=== PATIENT | female | born 1995 | race Caucasian/White ===

== ENCOUNTER 2020-03-15 06:04 | Emergency (ER) | payer BC ==
[2020-03-15] MEDS ORDERED: Sodium Chloride 0.9% 1,000 ML IV ONE (06:26)
[2020-03-15 06:40] LABS: BARBITURATE SCREEN,URINE NEGATIVE (NEGATIVE); BENZODIAZEPINES SCREEN,URINE NEGATIVE (NEGATIVE); EDDP,URINE SCREEN NEGATIVE (NEGATIVE); TCA SCREEN,URINE NEGATIVE (NEGATIVE); THC SCREEN,URINE 50 NG/ML NEGATIVE (NEGATIVE)
[2020-03-15 07:02] LABS: CHLORIDE,CL 105 mmol/L (98-107); SODIUM,NA 139 mmol/L (136-145)
[2020-03-15] MEDS ORDERED: levETIRAcetam 1,000 MG in Sodium Chloride 0.9% 100 ML IV ONE (07:16)
--- NOTE | 2020-03-15 07:27 | EDM.PDOC ---
ED HPI GENERAL MEDICAL PROBLEM - General Chief Complaint: General Stated Complaint: unresponsive Time Seen by Provider: 03/15/20 06:04 Source of Information: Reports: EMS, Family History Limitations: Reports: Altered Mental Status - History of Present Illness INITIAL COMMENTS - FREE TEXT/NARRATIVE: Pt brought to ER via EMS Was working at [employer] and had a syncopal episode Pt unresponsive in transport per EMS Upon arrival in ER, pt remains unresponsive. Per 's report who was at work with her, pt had been seen in [facility] recently for tachycardia and had holter monitor placed several days ago and removed but no report yet No fever No trauma No recent illness Did have Covid-19 in 02/02 No hx/o seizures No previous syncope Pt given Valium 5 mg IV per [facility] orders upon arrival in ER Onset: Today, Sudden Location: Reports: Generalized Context: Reports: Other (Syncope) - Related Data Allergies Allergy/AdvReac Type Severity Reaction Status Date / Time No Known Allergies Allergy Verified 08/06/19 12:33 Home Meds: Home Meds . 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 Neurological History: Reports: Concussion Psychiatric History: Reports: Emotional Problems Endocrine/Metabolic History: Reports: Obesity/BMI 30+ - Past Surgical History HEENT Surgical History: Reports: Oral Surgery GI Surgical History: Reports: Colonoscopy Female Surgical History: Reports: Section Social & Family History - Family History Family Medical History: Noncontributory - Caffeine Use Caffeine Use: Reports: None ED ROS GENERAL - Review of Systems Review Of Systems: See Below Reason Not Obtained: Obtained from Constitutional: Reports: No Symptoms HEENT: Reports: No Symptoms Respiratory: Reports: No Symptoms Cardiovascular: Reports: Other (Tachycardia) GI/Abdominal: Reports: No Symptoms : Reports: No Symptoms Musculoskeletal: Reports: No Symptoms Neurological: Reports: No Symptoms Psychiatric: Reports: No Symptoms ED EXAM, GENERAL - Physical Exam Exam: See Below Exam Limited By: Altered Mental Status General Appearance: Other (Unresponsive) Eye Exam: Bilateral Eye: PERRL Ears: Normal TMs Nose: Normal Inspection Throat/Mouth: Normal Oropharynx Head: Atraumatic Neck: Normal Inspection Respiratory/Chest: Lungs Clear, Normal Breath Sounds Cardiovascular: Tachycardia GI/Abdominal: Soft Back Exam: Normal Inspection Extremities: Normal Inspection Neurological: Unresponsive, Other (GCS-3) Skin Exam: Warm, Dry Course - Vital Signs Last Recorded V/S: Last Vital Signs Temp 98.1 F 03/15/20 07:14 Pulse 108 H 03/15/20 07:14 Resp 12 03/15/20 07:14 BP 139/71 03/15/20 07:14 Pulse Ox 100 03/15/20 07:14 - Orders/Labs/Meds Orders: Active Orders 24 hr Category Date Time Status EKG Documentation Completion [RC] ASDIRECTED Care 03/15/20 06:12 Active Head wo Cont [CT] Stat Exams 03/15/20 06:06 Taken Sodium Chloride 0.9% [Normal Saline] 1,000 ml Med 03/15/20 06:26 Active IV .BOLUS levETIRAcetam [Keppra] 1,000 mg Med 03/15/20 07:16 Active Sodium Chloride 0.9% [Normal Saline] 100 ml IV ONETIME EKG 12 Lead [EK] Stat Ther 03/15/20 06:11 Ordered Medication Orders Sodium Chloride (Normal Saline) 1,000 mls @ 1,000 mls/hr IV .BOLUS ONE Stop: 03/15/20 07:25 Levetiracetam 1,000 mg/ Sodium (Chloride) 110 mls @ 400 mls/hr IV ONETIME ONE Stop: 03/15/20 07:32 Labs: Laboratory Tests 03/15/20 03/15/20 03/15/20 Range/Units 06:08 06:08 06:25 WBC 8.6 (4.0-10.2) K/uL RBC 4.37 (3.77-5.09) M/uL Hgb 13.0 (11.7-15.5) g/dL Hct 39.6 (34.0-46.0) % MCV 90.6 (84.0-98.0) fL MCH 29.7 (28.2-33.3) pg MCHC 32.8 (31.7-36.0) g/dL RDW 14.7 H (11.2-14.1) % Plt Count 200 (150-350) K/uL Neut % (Auto) 69.9 (45.0-80.0) % Lymph % (Auto) 19.2 (10.0-50.0) % Clark % (Auto) 9.0 (2.0-14.0) % Eos % (Auto) 1.7 (0.0-5.0) % Baso % (Auto) 0.2 (0.0-2.0) % Neut # (Auto) 6.03 (1.40-7.00) K/uL Lymph # (Auto) 1.66 (0.50-3.50) K/uL Clark # (Auto) 0.78 (0.00-1.00) K/uL Eos # (Auto) 0.15 (0.00-0.50) K/uL Baso # (Auto) 0.02 (0.00-0.20) K/uL Sodium (136-145) mmol/L Potassium (3.5-5.1) mmol/L Chloride (98-107) mmol/L Carbon Dioxide (21.0-32.0) mmol/L BUN (7-18) mg/dL Creatinine (0.51-1.17) mg/dL Est Cr Clr Drug Dosing Estimated GFR (MDRD) mL/min Glucose (74-106) mg/dL Lactic Acid (0.4-2.0) mmol/L Calcium (8.5-10.1) mg/dL Total Bilirubin (0.2-1.0) mg/dL AST (15-37) U/L ALT (12-78) U/L Alkaline Phosphatase (46-116) IU/L Troponin I (0.000-0.056) ng/mL Total Protein (6.4-8.2) g/dL Albumin (3.4-5.0) g/dL Urine HCG, Qual Negative Urine Opiates Screen Negative (NEGATIVE) Ur Buprenorphine Scrn Negative (NEGATIVE) Ur Oxycodone Screen Negative (NEGATIVE) Ur EDDP (Meth Metab) Negative (NEGATIVE) Ur Barbiturates Screen Negative (NEGATIVE) Ur Tricyclics Screen Negative (NEGATIVE) Ur Amphetamine Screen Negative (NEGATIVE) U Methamphetamines Scrn Negative (NEGATIVE) Urine MDMA Screen Negative (NEGATIVE) U Benzodiazepines Scrn Negative (NEGATIVE) U Cocaine Metab Screen Negative (NEGATIVE) U Marijuana (THC) Screen Negative (NEGATIVE) Ethyl Alcohol (0.000-0.080) g/dL 03/15/20 03/15/20 Range/Units 06:25 06:25 WBC (4.0-10.2) K/uL RBC (3.77-5.09) M/uL Hgb (11.7-15.5) g/dL Hct (34.0-46.0) % MCV (84.0-98.0) fL MCH (28.2-33.3) pg MCHC (31.7-36.0) g/dL RDW (11.2-14.1) % Plt Count (150-350) K/uL Neut % (Auto) (45.0-80.0) % Lymph % (Auto) (10.0-50.0) % Clark % (Auto) (2.0-14.0) % Eos % (Auto) (0.0-5.0) % Baso % (Auto) (0.0-2.0) % Neut # (Auto) (1.40-7.00) K/uL Lymph # (Auto) (0.50-3.50) K/uL Clark # (Auto) (0.00-1.00) K/uL Eos # (Auto) (0.00-0.50) K/uL Baso # (Auto) (0.00-0.20) K/uL Sodium 139 (136-145) mmol/L Potassium 3.3 L (3.5-5.1) mmol/L Chloride 105 (98-107) mmol/L Carbon Dioxide 21.9 (21.0-32.0) mmol/L BUN 8 (7-18) mg/dL Creatinine 0.79 (0.51-1.17) mg/dL Est Cr Clr Drug Dosing TNP Estimated GFR (MDRD) > 60 mL/min Glucose 117 H (74-106) mg/dL Lactic Acid 1.1 (0.4-2.0) mmol/L Calcium 8.8 (8.5-10.1) mg/dL Total Bilirubin 0.5 (0.2-1.0) mg/dL AST 19 (15-37) U/L ALT 28 (12-78) U/L Alkaline Phosphatase 62 (46-116) IU/L Troponin I 0.000 (0.000-0.056) ng/mL Total Protein 7.1 (6.4-8.2) g/dL Albumin 4.0 (3.4-5.0) g/dL Urine HCG, Qual Urine Opiates Screen (NEGATIVE) Ur Buprenorphine Scrn (NEGATIVE) Ur Oxycodone Screen (NEGATIVE) Ur EDDP (Meth Metab) (NEGATIVE) Ur Barbiturates Screen (NEGATIVE) Ur Tricyclics Screen (NEGATIVE) Ur Amphetamine Screen (NEGATIVE) U Methamphetamines Scrn (NEGATIVE) Urine MDMA Screen (NEGATIVE) U Benzodiazepines Scrn (NEGATIVE) U Cocaine Metab Screen (NEGATIVE) U Marijuana (THC) Screen (NEGATIVE) Ethyl Alcohol 0.002 (0.000-0.080) g/dL Meds: Medications Generic Name Dose Route Start Last Admin Trade Name Freq PRN Reason Stop Dose Admin Sodium Chloride 1,000 mls @ 1,000 mls/hr 03/15/20 06:26 Normal Saline IV 03/15/20 07:25 .BOLUS ONE Levetiracetam 1,000 mg/ Sodium 110 mls @ 400 mls/hr 03/15/20 07:16 Chloride IV 03/15/20 07:32 ONETIME ONE - Re-Assessments/Exams Free Text/Narrative Re-Assessment/Exam: 03/15/20 07:28 See lab - WNL CT of head WNL per radiologist Pt remains unresponsive to noxious stimuli Is able to maintain own airway and breathing easily Oxygen sats on RA remain 100% Minimal urine output in [place] bag D/W Dr Hernandez [facility] ER Will accept in transfer Transfer via EMS Suggests Elanara 1 gm IV in ER Departure - Departure Time of Disposition: 07:40 Disposition: DC/Tfer to Acute Hospital 02 Clinical Impression: Altered mental status Qualifiers: Altered mental status type: coma Coma depth: [place] coma 3-8 Coma timing: unspecified coma timing Qualified Code(s): R40.2430 - [place] coma scale score 3-8, unspecified time - Discharge Information Referrals: PCP,None [Primary Care Provider] - Sepsis Event Note (ED) - Focused Exam Vital Signs: Vital Signs Temp Pulse Resp BP Pulse Ox 03/15/20 07:14 98.1 F 108 H 12 139/71 100 - My Orders Last 24 Hours: My Active Orders 03/15/20 06:06 Head wo Cont [CT] Stat 03/15/20 06:11 EKG 12 Lead [EK] Stat 03/15/20 06:12 EKG Documentation Completion [RC] ASDIRECTED 03/15/20 06:26 Sodium Chloride 0.9% [Normal Saline] 1,000 ml IV .BOLUS 03/15/20 07:16 levETIRAcetam [Keppra] 1,000 mg Sodium Chloride 0.9% [Normal Saline] 100 ml IV ONETIME - Assessment/Plan Last 24 Hours: My Active Orders 03/15/20 06:06 Head wo Cont [CT] Stat 03/15/20 06:11 EKG 12 Lead [EK] Stat 03/15/20 06:12 EKG Documentation Completion [RC] ASDIRECTED 03/15/20 06:26 Sodium Chloride 0.9% [Normal Saline] 1,000 ml IV .BOLUS 03/15/20 07:16 levETIRAcetam [Keppra] 1,000 mg Sodium Chloride 0.9% [Normal Saline] 100 ml IV ONETIME
[2020-03-15] MEDS ORDERED: Sodium Chloride 0.9% 1,000 ML IV SCH (08:00)
== END 2020-03-15 08:10 ==
LOC: LL.ED 06:04
DX: R41.82 Altered mental status, unspecified (principal); R40.2430 Glasgow coma scale score 3-8, unspecified time; E66.9 Obesity, unspecified; R00.0 Tachycardia, unspecified; Z68.35 Body mass index [BMI] 35.0-35.9, adult
CPT/HCPCS: 36415; 70450; 80053; 80305; 80307; 81025; 83605; 84484; 85025; 93005; 96365; 99285; J1953; J7030

== ENCOUNTER 2020-04-22 21:40 | Emergency (ER) | payer BC ==
--- NOTE | 2020-04-22 22:51 | EDM.PDOC ---
ED HPI GENERAL MEDICAL PROBLEM - General Chief Complaint: Cardiovascular Problem Stated Complaint: chest pressure Time Seen by Provider: 04/22/20 22:06 Source of Information: Reports: Patient History Limitations: Reports: No Limitations - History of Present Illness INITIAL COMMENTS - FREE TEXT/NARRATIVE: Patient comes to ER after feeling her heart was pounding after she woke up from a nap. Has been having issues with tachycardia episodes on/off for years, but problem has worsened since she had Covid two months ago. Has not required medication for tachycardia for some time. Is being evaluated by Cardiology. Has appointment later this week to be fit for Holter. Reports she has passed out before apparently from this issue. Has some chest pressure now but that has been ongoing since Covid. No chest pain. No SOB. Normal thyroid evaluation last year. No contributing factors found for the tachycardia so far otherwise. Is currently with 3rd child, first trimester. 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 Neurological History: Reports: Concussion Psychiatric History: Reports: Emotional Problems Endocrine/Metabolic History: Reports: Obesity/BMI 30+ - Past Surgical History HEENT Surgical History: Reports: Oral Surgery GI Surgical History: Reports: Colonoscopy Female Surgical History: Reports: Section Social & Family History - Family History Family Medical History: No Pertinent Family History - Tobacco Use Tobacco Use Status *Q: Never Tobacco User Second Hand Smoke Exposure: No - Caffeine Use Caffeine Use: Reports: None - Recreational Drug Use Recreational Drug Use: No ED ROS GENERAL - Review of Systems Review Of Systems: Comprehensive ROS is negative, except as noted in HPI. ED EXAM, GENERAL - Physical Exam Exam: See Below Exam Limited By: No Limitations General Appearance: Alert, No Apparent Distress, Anxious, Obese Eye Exam: Bilateral Eye: EOMI, PERRL Ears: Hearing Grossly Normal Nose: No: Nasal Deformity, Nasal Swelling, Nasal Drainage Throat/Mouth: Normal Lips, Normal Voice, No Airway Compromise Head: Atraumatic, Normocephalic Neck: Normal Inspection, Supple, Non-Tender, Full Range of Motion Respiratory/Chest: No Respiratory Distress, Lungs Clear, Normal Breath Sounds, No Accessory Muscle Use, Chest Non-Tender Cardiovascular: Regular Rate, Rhythm, No Murmur GI/Abdominal: Normal Bowel Sounds, Soft, Non-Tender, No Distention (Female) Exam: Deferred Rectal (Female) Exam: Deferred Extremities: Non-Tender, Normal Capillary Refill Neurological: Alert, Oriented, Normal Cognition, Normal Gait, No Motor/Sensory Deficits Psychiatric: Anxious Skin Exam: Warm, Dry, Intact, Normal Color #1 Interpretation EKG Date: 04/22/20 Time: 21:42 Rhythm: NSR Rate (Beats/Min): 84 [place]: Normal P-Wave: Present QRS: Normal ST-T: Normal QT: Normal Comparison: Change From Previous EKG (rate 117 previous EKG) Course - Vital Signs Last Recorded V/S: Last Vital Signs Temp 37.3 C 04/22/20 21:45 Pulse 81 04/22/20 22:00 Resp 20 04/22/20 22:00 BP 126/75 04/22/20 22:00 Pulse Ox 99 04/22/20 22:00 - Orders/Labs/Meds Orders: Active Orders 24 hr Category Date Time Status EKG Documentation Completion [RC] ASDIRECTED Care 04/22/20 21:40 Active CBC WITH AUTO DIFF [HEME] Stat Lab 04/22/20 21:57 Ordered COMPREHENSIVE METABOLIC PN,CMP [CHEM] Stat Lab 04/22/20 21:57 Ordered MAGNESIUM [CHEM] Stat Lab 04/22/20 21:57 Ordered TROPONIN I [CHEM] Stat Lab 04/22/20 21:57 Ordered EKG 12 Lead [EK] Stat Ther 04/22/20 21:57 Ordered - Re-Assessments/Exams Free Text/Narrative Re-Assessment/Exam: 04/22/20 22:34 Vital signs stable/normal heart rate noted during exam. EKG unremarkable. CBC/Chem/Mag/Troponin unremarkable. Patient does appear anxious, fine tremor at times noted when she used hands. Suspect component of anxiety present. Reassurance given. Recommend incorporating anti-inflammatory diet and meditation into treatment strategy while she works with Cardiology. Patient agreeable with suggestions. To follow up as scheduled this week. To follow up otherwise as needed PRN problems. Departure - Departure Time of Disposition: 22:37 Disposition: Home, Self-Care 01 Condition: Good Clinical Impression: Pounding heartbeat Referrals: Astrid Agarwal, GARMENT STEAMER [Primary Care Provider] - Additional Instructions: Follow up as planned with Cardiology later this week. Follow up otherwise as needed if you have further problems Sepsis Event Note (ED) - Evaluation Sepsis Screening Result: No Definite Risk - Focused Exam Vital Signs: Vital Signs Temp Pulse Resp BP Pulse Ox 04/22/20 22:00 81 20 126/75 99 04/22/20 21:45 37.3 C 80 21 H 138/78 99 - My Orders Last 24 Hours: My Active Orders 04/22/20 21:40 EKG Documentation Completion [RC] ASDIRECTED 04/22/20 21:57 CBC WITH AUTO DIFF [HEME] Stat COMPREHENSIVE METABOLIC PN,CMP [CHEM] Stat MAGNESIUM [CHEM] Stat TROPONIN I [CHEM] Stat EKG 12 Lead [EK] Stat - Assessment/Plan Last 24 Hours: My Active Orders 04/22/20 21:40 EKG Documentation Completion [RC] ASDIRECTED 04/22/20 21:57 CBC WITH AUTO DIFF [HEME] Stat COMPREHENSIVE METABOLIC PN,CMP [CHEM] Stat MAGNESIUM [CHEM] Stat TROPONIN I [CHEM] Stat EKG 12 Lead [EK] Stat
[2020-04-23 06:27] LABS: CHLORIDE,CL 105 mmol/L (98-107); SODIUM,NA 139 mmol/L (136-145)
== END 2020-04-22 23:00 | disposition home or self-care (01) ==
LOC: LL.ED 21:40
DX: R00.2 Palpitations (principal); E66.9 Obesity, unspecified
CPT/HCPCS: 36415; 80053; 83735; 84484; 85025; 93005; 99285-25

== ENCOUNTER 2022-03-05 20:03 | Emergency (ER) | payer BC ==
[2022-03-05] MEDS ORDERED: Iopamidol 612 MG/ML 100 ML Bottle IVPUSH STA (20:17)
[2022-03-05] MEDS ORDERED: Morphine 2 MG/ML SYRINGE IVPUSH ONE ×2 (20:22→21:08)
[2022-03-05] MEDS ORDERED: Sodium Chloride 0.9% 1,000 ML IV ONE (20:25)
[2022-03-05 20:42] LABS: ANION GAP 12.2 meq/L (7-15); CHLORIDE,CL 103 mmol/L (98-107); SODIUM,NA 138 mmol/L (136-145)
[2022-03-05 20:43] LABS: ESTIMATED GFR 77 mL/min (>=60)
== END 2022-03-05 22:10 | disposition home or self-care (01) ==
LOC: LL.ED 20:03
DX: O99.891 Other specified diseases and conditions complicating pregnancy (principal); R10.31 Right lower quadrant pain; Z3A.08 8 weeks gestation of pregnancy; E66.9 Obesity, unspecified; Z79.899 Other long term (current) drug therapy
CPT/HCPCS: 36415; 74176; 80053; 81003; 84702; 84703; 85025; 96361; 96374; 96376; 99284; 99284-25; J2270; J7030

== ENCOUNTER 2022-07-13 12:10 | Emergency (ER) | payer BC, OTHER ==
[2022-07-13 13:18] LABS: ANION GAP 8.9 meq/L (7-15); CHLORIDE,CL 106 mmol/L (98-107); SODIUM,NA 142 mmol/L (136-145)
[2022-07-13 13:23] LABS: ESTIMATED GFR 72 mL/min (>=60)
[2022-07-13] MEDS ORDERED: Acetaminophen 500 MG Tab PO ONE (13:33)
[2022-07-13 14:50] VITALS: BP 135/80; PULSE 88
== END 2022-07-13 14:30 | disposition home or self-care (01) ==
LOC: LL.ED 12:10
DX: S06.0X0A Concussion without loss of consciousness, initial encounter (principal); S93.401A Sprain of unspecified ligament of right ankle, initial encounter; M54.2 Cervicalgia; E66.9 Obesity, unspecified; W18.30XA Fall on same level, unspecified, initial encounter; Y92.89 Other specified places as the place of occurrence of the external cause; Y99.0 Civilian activity done for income or pay
CPT/HCPCS: 36415; 70450; 72125; 73600-RT; 80053; 85025; 99283; 99284; A9270-GY

== ENCOUNTER 2022-12-17 13:41 | Emergency (ER) | payer BC ==
[2022-12-17 14:30] LABS: BASOPHILS ABSOLUTE AUTO 0.01 K/uL (0.00-0.20); BASOPHILS PERCENT AUTO 0.1 % (0.0-2.0); EOSINOPHILS ABSOLUTE AUTO 0.06 K/uL (0.00-0.50); EOSINOPHILS PERCENT AUTO 0.6 % (0.0-5.0); HEMATOCRIT 37.6 % (34.0-46.0); HEMOGLOBIN 12.6 g/dL (11.7-15.5); LYMPHOCYTES ABSOLUTE AUTO 1.32 K/uL (0.50-3.50); MEAN CORPUSCULAR HEMOGLOBIN 28.4 pg (28.2-33.3); MEAN CORPUSCULAR HGB CONC 33.5 g/dL (31.7-36.0); MEAN CORPUSCULAR VOLUME 84.7 fL (84.0-98.0); MONOCYTES ABSOLUTE AUTO 0.96 K/uL (0.00-1.00); MONOCYTES PERCENT AUTO 9.5 % (2.0-14.0); NEUTROPHILS ABSOLUTE AUTO 7.78 K/uL (1.40-7.00); NEUTROPHILS PERCENT AUTO 76.8 % (45.0-80.0); PLATELET COUNT,PLT 194 K/uL (150-350); RED BLOOD CELL COUNT 4.44 M/uL (3.77-5.09); RED CELL DISTRIBUTION WIDTH 15.7 % (11.2-14.1); WHITE BLOOD CELL COUNT,WBC 10.1 K/uL (4.0-10.2)
[2022-12-17 15:00] LABS: ALANINE AMINOTRANSFERASE,ALT 6 U/L (12-78); ALBUMIN 3.3 g/dL (3.4-5.0); ALKALINE PHOSPHATASE 48 IU/L (46-116); ANION GAP 9.6 meq/L (7-15); ASPARTATE AMNIOTRANSFERASE,AST 13 U/L (15-37); BILIRUBIN TOTAL 0.4 mg/dL (0.2-1.0); BLOOD UREA NITROGEN,BUN 8 mg/dL (7-18); CALCIUM 8.6 mg/dL (8.5-10.1); CARBON DIOXIDE,CO2 23.4 mmol/L (21.0-32.0); CHLORIDE,CL 106 mmol/L (98-107); CREATININE 0.93 mg/dL (0.51-1.17); GLUCOSE RANDOM 91 mg/dL (70-99); POTASSIUM,K 3.7 mmol/L (3.5-5.1); PROTEIN TOTAL,TP 6.8 g/dL (6.4-8.2); SODIUM,NA 139 mmol/L (136-145)
[2022-12-17 15:05] LABS: ESTIMATED GFR 86 mL/min (>=60)
[2022-12-17 15:14] LABS: PROTHROMBIN TIME 9.7 SEC (9.0-11.1)
== END 2022-12-17 18:16 | disposition home or self-care (01) ==
LOC: LL.ED 13:41
DX: O99.891 Other specified diseases and conditions complicating pregnancy (principal); R07.9 Chest pain, unspecified; O99.341 Other mental disorders complicating pregnancy, first trimester; F48.8 Other specified nonpsychotic mental disorders; Z3A.12 12 weeks gestation of pregnancy
CPT/HCPCS: 36415; 71046; 80053; 84484; 85025; 85610; 93005; 93010; 99284; 99285

== ENCOUNTER 2023-01-27 08:19 | Emergency (ER) | payer BC ==
[2023-01-27 08:59] LABS: BASOPHILS ABSOLUTE AUTO 0.01 K/uL (0.00-0.20); BASOPHILS PERCENT AUTO 0.1 % (0.0-2.0); EOSINOPHILS ABSOLUTE AUTO 0.06 K/uL (0.00-0.50); EOSINOPHILS PERCENT AUTO 0.6 % (0.0-5.0); HEMATOCRIT 38.7 % (34.0-46.0); HEMOGLOBIN 12.9 g/dL (11.7-15.5); LYMPHOCYTES ABSOLUTE AUTO 1.85 K/uL (0.50-3.50); LYMPHOCYTES PERCENT AUTO 19.4 % (10.0-50.0); MEAN CORPUSCULAR HEMOGLOBIN 29.2 pg (28.2-33.3); MEAN CORPUSCULAR HGB CONC 33.3 g/dL (31.7-36.0); MEAN CORPUSCULAR VOLUME 87.6 fL (84.0-98.0); MONOCYTES ABSOLUTE AUTO 0.53 K/uL (0.00-1.00); MONOCYTES PERCENT AUTO 5.6 % (2.0-14.0); NEUTROPHILS ABSOLUTE AUTO 7.07 K/uL (1.40-7.00); NEUTROPHILS PERCENT AUTO 74.3 % (45.0-80.0); PLATELET COUNT,PLT 230 K/uL (150-350); RED BLOOD CELL COUNT 4.42 M/uL (3.77-5.09); RED CELL DISTRIBUTION WIDTH 15.1 % (11.2-14.1); WHITE BLOOD CELL COUNT,WBC 9.5 K/uL (4.0-10.2)
[2023-01-27 09:17] LABS: APPEARANCE,URINE CLEAR; BILIRUBIN,URINE NEGATIVE (NEGATIVE); COLOR,URINE YELLOW; GLUCOSE,URINE NEGATIVE (NEGATIVE); KETONES,URINE NEGATIVE (NEGATIVE); NITRITE,URINE NEGATIVE (NEGATIVE); OCCULT BLOOD,URINE NEGATIVE (NEGATIVE); PROTEIN,URINE NEGATIVE (NEGATIVE); UROBILINOGEN,URINE 0.2 E.U./dL (0.2-1.0)
[2023-01-27 09:23] LABS: ALBUMIN 3.2 g/dL (3.4-5.0); ANION GAP 9.7 meq/L (7-15); BILIRUBIN TOTAL 0.4 mg/dL (0.2-1.0); CALCIUM 8.7 mg/dL (8.5-10.1); CARBON DIOXIDE,CO2 24.3 mmol/L (21.0-32.0); CREATININE 0.77 mg/dL (0.51-1.17); EST CRCL DRUG DOSING (CG) 110.71 mL/min; POTASSIUM,K 3.8 mmol/L (3.5-5.1); PROTEIN TOTAL,TP 6.9 g/dL (6.4-8.2)
[2023-01-27 09:39] LABS: LEUKOCYTE ESTERASE,URINE NEGATIVE (NEGATIVE)
[2023-01-27 11:04] LABS: AMPHETAMINES SCREEN, URINE NEGATIVE (NEGATIVE); BARBITURATE SCREEN,URINE NEGATIVE (NEGATIVE); BENZODIAZEPINES SCREEN,URINE NEGATIVE (NEGATIVE); COCAINE METABOLITES,URINE NEGATIVE (NEGATIVE); EDDP,URINE SCREEN NEGATIVE (NEGATIVE); METHAMPHETAMINES SCREEN, URINE NEGATIVE (NEGATIVE); TCA SCREEN,URINE NEGATIVE (NEGATIVE); THC SCREEN,URINE 50 NG/ML NEGATIVE (NEGATIVE)
[2023-01-27] MEDS: Aspirin 81 MG Tab.Chew PO ONE (11:14)
[2023-01-27 11:17] LABS: BUPRENORPHINE SCREEN,URINE NEGATIVE (NEGATIVE); OXYCODONE SCREEN,URINE NEGATIVE (NEGATIVE)
== END 2023-01-27 11:30 ==
LOC: LL.ED 08:19
DX: O99.412 Diseases of the circulatory system complicating pregnancy, second trimester (principal); R77.8 Other specified abnormalities of plasma proteins; E66.9 Obesity, unspecified; Z3A.20 20 weeks gestation of pregnancy; Z68.41 Body mass index [BMI] 40.0-44.9, adult
CPT/HCPCS: 36415; 80053; 80305-QW; 81003; 84484; 84702; 84703; 85025; 93005; 93010; 99284; 99285; A9270-GY

== ENCOUNTER 2023-03-01 13:17 | Emergency (ER) | payer BC ==
[2023-03-01 13:49] LABS: BASOPHILS ABSOLUTE AUTO 0.01 K/uL (0.00-0.20); BASOPHILS PERCENT AUTO 0.1 % (0.0-2.0); EOSINOPHILS ABSOLUTE AUTO 0.08 K/uL (0.00-0.50); EOSINOPHILS PERCENT AUTO 0.6 % (0.0-5.0); HEMATOCRIT 36.5 % (34.0-46.0); HEMOGLOBIN 11.9 g/dL (11.7-15.5); LYMPHOCYTES ABSOLUTE AUTO 1.96 K/uL (0.50-3.50); LYMPHOCYTES PERCENT AUTO 13.8 % (10.0-50.0); MEAN CORPUSCULAR HEMOGLOBIN 29.5 pg (28.2-33.3); MEAN CORPUSCULAR HGB CONC 32.6 g/dL (31.7-36.0); MEAN CORPUSCULAR VOLUME 90.6 fL (84.0-98.0); MONOCYTES ABSOLUTE AUTO 0.81 K/uL (0.00-1.00); MONOCYTES PERCENT AUTO 5.7 % (2.0-14.0); NEUTROPHILS PERCENT AUTO 79.8 % (45.0-80.0); PLATELET COUNT,PLT 243 K/uL (150-350); RED BLOOD CELL COUNT 4.03 M/uL (3.77-5.09); RED CELL DISTRIBUTION WIDTH 14.4 % (11.2-14.1); WHITE BLOOD CELL COUNT,WBC 14.2 K/uL (4.0-10.2)
[2023-03-01 14:09] LABS: PROTHROMBIN TIME 9.9 SEC (9.0-11.1)
[2023-03-01 14:12] LABS: ALANINE AMINOTRANSFERASE,ALT 8 U/L (12-78); ALKALINE PHOSPHATASE 68 IU/L (46-116); ANION GAP 8.5 meq/L (7-15); ASPARTATE AMNIOTRANSFERASE,AST 8 U/L (15-37); BILIRUBIN TOTAL 0.3 mg/dL (0.2-1.0); BLOOD UREA NITROGEN,BUN 11 mg/dL (7-18); CALCIUM 8.9 mg/dL (8.5-10.1); CARBON DIOXIDE,CO2 24.5 mmol/L (21.0-32.0); CHLORIDE,CL 104 mmol/L (98-107); CREATININE 0.97 mg/dL (0.51-1.17); EST CRCL DRUG DOSING (CG) 87.88 mL/min; GLUCOSE RANDOM 111 mg/dL (70-99); POTASSIUM,K 3.8 mmol/L (3.5-5.1); PROTEIN TOTAL,TP 6.6 g/dL (6.4-8.2); SODIUM,NA 137 mmol/L (136-145)
[2023-03-01 14:31] LABS: ESTIMATED GFR 82 mL/min (>=60)
== END 2023-03-01 15:30 | disposition home or self-care (01) ==
LOC: LL.ED 13:17
DX: R07.9 Chest pain, unspecified (principal); E66.9 Obesity, unspecified; Z68.41 Body mass index [BMI] 40.0-44.9, adult
CPT/HCPCS: 36415; 80053; 84484; 85025; 85610; 93005; 93010; 99284; 99285

== ENCOUNTER 2023-05-08 09:51 | Emergency (ER) | payer BC ==
[2023-05-08] MEDS ORDERED: Sodium Chloride 0.9% 10 ML Syringe FLUSH PRN (10:05)
[2023-05-08 10:13] LABS: BASOPHILS ABSOLUTE AUTO 0.01 K/uL (0.00-0.20); BASOPHILS PERCENT AUTO 0.1 % (0.0-2.0); EOSINOPHILS ABSOLUTE AUTO 0.04 K/uL (0.00-0.50); EOSINOPHILS PERCENT AUTO 0.3 % (0.0-5.0); HEMATOCRIT 34.4 % (34.0-46.0); LYMPHOCYTES ABSOLUTE AUTO 2.06 K/uL (0.50-3.50); LYMPHOCYTES PERCENT AUTO 17.5 % (10.0-50.0); MEAN CORPUSCULAR HEMOGLOBIN 27.4 pg (28.2-33.3); MEAN CORPUSCULAR VOLUME 85.8 fL (84.0-98.0); MONOCYTES ABSOLUTE AUTO 0.62 K/uL (0.00-1.00); MONOCYTES PERCENT AUTO 5.3 % (2.0-14.0); NEUTROPHILS ABSOLUTE AUTO 9.03 K/uL (1.40-7.00); NEUTROPHILS PERCENT AUTO 76.8 % (45.0-80.0); PLATELET COUNT,PLT 242 K/uL (150-350); RED BLOOD CELL COUNT 4.01 M/uL (3.77-5.09); RED CELL DISTRIBUTION WIDTH 14.5 % (11.2-14.1); WHITE BLOOD CELL COUNT,WBC 11.8 K/uL (4.0-10.2)
[2023-05-08 10:48] LABS: ALANINE AMINOTRANSFERASE,ALT 23 U/L (12-78); ALBUMIN 2.6 g/dL (3.4-5.0); ALKALINE PHOSPHATASE 110 IU/L (46-116); ANION GAP 11.6 meq/L (7-15); ASPARTATE AMNIOTRANSFERASE,AST 16 U/L (15-37); BILIRUBIN TOTAL 0.4 mg/dL (0.2-1.0); BLOOD UREA NITROGEN,BUN 9 mg/dL (7-18); CALCIUM 8.3 mg/dL (8.5-10.1); CARBON DIOXIDE,CO2 22.4 mmol/L (21.0-32.0); CHLORIDE,CL 106 mmol/L (98-107); GLUCOSE RANDOM 109 mg/dL (70-99); MAGNESIUM 1.8 mg/dL (1.8-2.4); POTASSIUM,K 3.5 mmol/L (3.5-5.1); PROTEIN TOTAL,TP 6.5 g/dL (6.4-8.2); SODIUM,NA 140 mmol/L (136-145)
[2023-05-08] MEDS ORDERED: Aluminum Hydroxide/Magnesium Hydroxide/Simethicone Susp 30 ML Cup PO ONE (10:48)
[2023-05-08 10:50] LABS: ESTIMATED GFR 90 mL/min (>=60)
[2023-05-08 10:54] LABS: INR 0.9 (0.9-1.1); PROTHROMBIN TIME 9.4 SEC (9.0-11.1)
[2023-05-08 10:57] LABS: AMYLASE 47 U/L (25-115); LIPASE 29 U/L (16-77)
[2023-05-08 11:32] LABS: CORONAVIRUS COVID-19 NAA NEGATIVE (NEGATIVE); INFLUENZA A NAA NEGATIVE (NEGATIVE); INFLUENZA B NAA NEGATIVE (NEGATIVE); RESPIRATORY SYNCYTIAL VIR NAA NEGATIVE (NEGATIVE)
[2023-05-08] MEDS ORDERED: Iopamidol 755 Mg/ML 100 ML Bottle IVPUSH ONE (11:45)
== END 2023-05-08 13:20 | disposition home or self-care (01) ==
LOC: LL.ED 09:51
DX: R07.89 Other chest pain (principal); G89.29 Other chronic pain; E66.9 Obesity, unspecified; Z20.822 Contact with and (suspected) exposure to COVID-19
CPT/HCPCS: 0241U; 36415; 71275; 80053; 82150; 83690; 83735; 84443; 84484; 85025; 85379; 85610; 93005; 93010; 99284; 99285; A9270-GY; J3490; Q9967

== ENCOUNTER 2024-05-01 18:12 | Emergency (ER) | payer BC, MEDICAID ==
[2024-05-01 18:44] LABS: BASOPHILS ABSOLUTE AUTO 0.02 K/uL (0.00-0.20); BASOPHILS PERCENT AUTO 0.2 % (0.0-2.0); EOSINOPHILS ABSOLUTE AUTO 0.08 K/uL (0.00-0.50); EOSINOPHILS PERCENT AUTO 0.9 % (0.0-5.0); HEMATOCRIT 44.2 % (34.0-46.0); HEMOGLOBIN 14.1 g/dL (11.7-15.5); IMMATURE GRAN ABSOLUTE AUTO 0.01 10^3/uL (0.00-0.04); IMMATURE GRAN PERCENT AUTO 0.1 % (0.0-0.4); LYMPHOCYTES ABSOLUTE AUTO 2.94 K/uL (0.50-3.50); LYMPHOCYTES PERCENT AUTO 32.2 % (10.0-50.0); MEAN CORPUSCULAR HEMOGLOBIN 27.6 pg (28.2-33.3); MEAN CORPUSCULAR HGB CONC 31.9 g/dL (31.7-36.0); MEAN CORPUSCULAR VOLUME 86.7 fL (84.0-98.0); MONOCYTES ABSOLUTE AUTO 0.74 K/uL (0.00-1.00); MONOCYTES PERCENT AUTO 8.1 % (2.0-14.0); NEUTROPHILS ABSOLUTE AUTO 5.34 K/uL (1.40-7.00); NEUTROPHILS PERCENT AUTO 58.5 % (45.0-80.0); PLATELET COUNT,PLT 264 K/uL (150-350); RED CELL DISTRIBUTION WIDTH 13.6 % (11.2-14.1); WHITE BLOOD CELL COUNT,WBC 9.1 K/uL (4.0-10.2)
[2024-05-01 18:49] LABS: APPEARANCE,URINE CLEAR; BILIRUBIN,URINE NEGATIVE (NEGATIVE); COLOR,URINE YELLOW; GLUCOSE,URINE NEGATIVE (NEGATIVE); KETONES,URINE NEGATIVE (NEGATIVE); LEUKOCYTE ESTERASE,URINE NEGATIVE (NEGATIVE); NITRITE,URINE NEGATIVE (NEGATIVE); OCCULT BLOOD,URINE NEGATIVE (NEGATIVE); PROTEIN,URINE NEGATIVE (NEGATIVE); UROBILINOGEN,URINE 0.2 E.U./dL (0.2-1.0)
[2024-05-01 19:01] LABS: ALANINE AMINOTRANSFERASE,ALT 20 U/L (12-78); ALBUMIN 4.5 g/dL (3.4-5.0); ALKALINE PHOSPHATASE 86 IU/L (46-116); ANION GAP 8.2 meq/L (7-15); ASPARTATE AMNIOTRANSFERASE,AST 18 U/L (15-37); BILIRUBIN TOTAL 0.5 mg/dL (0.2-1.0); BLOOD UREA NITROGEN,BUN 14 mg/dL (7-18); CALCIUM 9.2 mg/dL (8.5-10.1); CARBON DIOXIDE,CO2 28.8 mmol/L (21.0-32.0); CHLORIDE,CL 105 mmol/L (98-107); CREATININE 1.05 mg/dL (0.51-1.17); GLUCOSE RANDOM 83 mg/dL (70-99); MAGNESIUM 2.1 mg/dL (1.8-2.4); POTASSIUM,K 3.8 mmol/L (3.5-5.1); PROTEIN TOTAL,TP 8.4 g/dL (6.4-8.2); SODIUM,NA 142 mmol/L (136-145)
[2024-05-01 19:09] LABS: ESTIMATED GFR 74 mL/min (>=60)
== END 2024-05-01 19:55 | disposition home or self-care (01) ==
LOC: LL.ED 18:12
DX: R53.83 Other fatigue (principal); R53.1 Weakness; R42 Dizziness and giddiness; E03.9 Hypothyroidism, unspecified; E66.9 Obesity, unspecified; Z79.899 Other long term (current) drug therapy
CPT/HCPCS: 36415; 80053; 81003; 81025; 83735; 84443; 85025; 87428-QW; 99284

== ENCOUNTER 2024-09-14 15:17 | Emergency (ER) | payer OTHER, MEDICAID ==
[2024-09-14 15:58] LABS: BASOPHILS ABSOLUTE AUTO 0.02 K/uL (0.00-0.20); BASOPHILS PERCENT AUTO 0.3 % (0.0-2.0); EOSINOPHILS ABSOLUTE AUTO 0.06 K/uL (0.00-0.50); EOSINOPHILS PERCENT AUTO 0.9 % (0.0-5.0); HEMATOCRIT 40.8 % (34.0-46.0); HEMOGLOBIN 13.2 g/dL (11.7-15.5); LYMPHOCYTES ABSOLUTE AUTO 2.06 K/uL (0.50-3.50); LYMPHOCYTES PERCENT AUTO 32.2 % (10.0-50.0); MEAN CORPUSCULAR HEMOGLOBIN 27.9 pg (28.2-33.3); MEAN CORPUSCULAR HGB CONC 32.4 g/dL (31.7-36.0); MEAN CORPUSCULAR VOLUME 86.3 fL (84.0-98.0); MONOCYTES ABSOLUTE AUTO 0.62 K/uL (0.00-1.00); MONOCYTES PERCENT AUTO 9.7 % (2.0-14.0); NEUTROPHILS ABSOLUTE AUTO 3.64 K/uL (1.40-7.00); NEUTROPHILS PERCENT AUTO 56.9 % (45.0-80.0); PLATELET COUNT,PLT 181 K/uL (150-350); RED BLOOD CELL COUNT 4.73 M/uL (3.77-5.09); RED CELL DISTRIBUTION WIDTH 15.2 % (11.2-14.1); WHITE BLOOD CELL COUNT,WBC 6.4 K/uL (4.0-10.2)
[2024-09-14 16:18] LABS: ALANINE AMINOTRANSFERASE,ALT 30 U/L (12-78); ALBUMIN 4.5 g/dL (3.4-5.0); ALKALINE PHOSPHATASE 122 IU/L (46-116); ASPARTATE AMNIOTRANSFERASE,AST 18 U/L (15-37); BLOOD UREA NITROGEN,BUN 11 mg/dL (7-18); CALCIUM 9.8 mg/dL (8.5-10.1); CARBON DIOXIDE,CO2 24.4 mmol/L (21.0-32.0); CHLORIDE,CL 107 mmol/L (98-107); GLUCOSE RANDOM 89 mg/dL (70-99); POTASSIUM,K 3.3 mmol/L (3.5-5.1); PROTEIN TOTAL,TP 7.9 g/dL (6.4-8.2); SODIUM,NA 143 mmol/L (136-145)
[2024-09-14 16:21] LABS: ANION GAP 14.9 meq/L (7-15); ESTIMATED GFR 89 mL/min (>=60)
== END 2024-09-14 17:20 | disposition home or self-care (01) ==
LOC: LL.ED 15:17
DX: K91.0 Vomiting following gastrointestinal surgery (principal); K95.89 Other complications of other bariatric procedure; E03.9 Hypothyroidism, unspecified; E66.9 Obesity, unspecified; Z79.890 Hormone replacement therapy; Z79.899 Other long term (current) drug therapy; Z88.8 Allergy status to other drugs, medicaments and biological substances; Z90.49 Acquired absence of other specified parts of digestive tract; Y83.9 Surgical procedure, unspecified as the cause of abnormal reaction of the patient, or of later complication, without mention of misadventure at the time of the procedure
CPT/HCPCS: 36415; 80053; 85025; 99283; 99284